=== PATIENT | male | born 1975 | race Caucasian/White ===

== ENCOUNTER 2024-10-17 11:06 | Outpatient (AMB) | payer OTHER, SELFPAY ==
--- NOTE | 2024-10-17 11:07 | A.OFFVIS_ITS ---
Vital Signs 10/17/24 11:09 Height 6 ft Weight 264 lb 5.348 oz BMI 35.8 BP 112/82 Blood Pressure Location Rt brachial Position Sitting Pulse 75 Pulse Source Pulse Oximeter Pulse Oximetry (%) 96 Oxygen Delivery Method Room Air Intake Visit Reasons: Low testosterone Intake Note: New patient externally referred for Low Tesosterone. Paper Sheeter Required: No Accompanied by: Self / Same As Patient Allergies omeprazole [From Prilosec] Allergy (Unknown, Verified 10/17/24 11:09) Rash HPI Comments Details: The patient is a 49-year-old male presenting with fatigue and concerns regarding low testosterone levels. The patient experienced fatigue for several years, starting around the time he was diagnosed with hypothyroidism two years ago. This diagnosis led to the commencement of levothyroxine treatment. Although thyroid function tests indicate improved thyroid levels, the patient reported that fatigue symptoms persist. He also notes his testosterone levels, measured previously, showed low normal values, but he has not been treated with testosterone supplements. Patient denies sexual dysfunction symptoms such as decreased libido or erectile difficulties. He experiences satisfactory sleep, albeit with occasional distu rbances but no notable history of sleep apnea. He reports no unusual changes in weight, appetite, or body composition that could be attributed to endocrine dysfunctions, nor has he noted any related familial conditions besides thyroid issues. Recently, the patient sought evaluation of an axillary lump at another medical institution, which involved an ultrasound with unclear results. 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 Surprise fatigue for couple of yrs . Found slightly low testosterone Not Was started on Testosterone supplementation Not Currently using Currently not achieving spontaneous am erections, and unable to achieve erection when desired. Not Reports low libido. Decreased facial hair and shaving frequency. Denies any change in size or shape of testicles. Denies penile discharge or scrotal tenderness. Denies any history of mumps orchitis. Denies any head trauma. Denies history of VALARIE but no workup for sleep apnea . with children 2 who were conceived spontaneously. Sense of smell intact. Denies headache or visual changes, gynecomastia or galactorrhea. Denies orthostatic symptoms, weight loss. Denies change in size of hands or feet. Denies hair loss, weight gain, cold intolerance. History of DVT or PE: No No use of biotin Labs:totl T =261 Free T=8.9 SHBG=11.2 PSA CBC The patient adheres to a generally healthy diet but expresses concerns over stagnant weight despite exercise and dietary efforts. There was no mention of specific dietary regimes or intolerances, nor was there specificity in terms of caloric intake or macronutrient composition. [facility] Medical History (Updated 10/17/24 @ 11:13 by Hao Whipple MD) Hypogonadism, testicular Surgical History (Updated 10/17/24 @ 11:10 by MARIAJOSE Arroyo) History of wisdom tooth extraction Hx of arthroscopic knee surgery Hx of shoulder surgery Family History Mother No known health problems Father No known health problems Social History Alcohol intake: current Alcohol intake frequency: holidays/special occasions only Patient Tobacco Use Status: Never used Tobacco Physical Exam Vital Signs: BMI result Body Mass Index 35.8 There is the absence of eunichoidal proportions. Neck exam reveals nl thyroid about 15 gms. Chest exam reveals absence of gynecomastia. Lungs CTA. Heart is S1 S2 Reg R/R. -M/R/G. Abdominal exam is benign. Muscle strength is 5/5 proximally. Examination of genitalia reveals nl size pthalus . Testes are of nl size and consistency. There is Jose Angel Stage V Hair development Assessment & Plan Assessment & Plan (1) Hypogonadism, testicular: Code(s): E29.1 - Testicular hypofunction Category: Medical Plan: This is a 49-year-old male found to have a low total testosterone level with normal free testosterone and low SHBG. Obesity and insulin resistance can lower SH BG and lead to low total testosterone levels. May not indicate hypogonadism 1. Fatigue: The patient's ongoing fatigue is an enduring issue post- normalization of thyroid levels with levothyroxine. Detailed monitoring and an increase of levothyroxine may be explored to target an optimal TSH range below 2.5, pending primary care provider's amendment. Further diagnostic consideration towards sleep apnea via sleep studies may be performed based on symptomatology a dherence to fatigue etiology. Reinforcement of current exercise and dietary regimen advised. 2. Hypothyroidism: TSH levels remain at the higher end of the normal range despite ongoing treatment with levothyroxine. An evaluation for dosage adjustment is recommended to achieve optimal thyroid levels. Continuous follow- up with regular thyroid function tests to ensure consistent euthyroid status and address the marginally elevated TSH. Primary care provider may consider increasing dose of levothyroxine to achieve a TSH level less than 2.5. 3. Low Testosterone Level: The assessment indicates low total but normal free testosterone levels, directing the management to focus on lifestyle amendments, including weight reduction and increased physical activity. Consideration of testosterone replacement therapy deemed not currently indicated but should be revisited should hormone profile shift or symptoms manifest typical of testosterone deficiency. The patient had an opportunity to ask questions regarding treatment plan. The patient expressed understanding and agreement with the above treatment plan. During the visit, I explained the significance of testosterone and its physiological role in addressing fatigue, contextualizing the current lab findings within the patient's symptomatology. I stressed the importance of addressing potential contributing factors from an endocrinological perspective, including optimal thyroid management and addressing potential sleep disturbances, and the role they may play in fatigue. I recommended a dose reassessment for levothyroxine and endorsed continuous exercise practices as crucial to improving overall energy levels. We discussed the potential for conducting a sleep study to rule out sleep apnea as a factor exacerbating fatigue, highlighting its necessity only if the patient's symptoms persist. Informed consent obtained for ongoing management strategies and understanding of testosterone levels' role was confirmed. The possibility of re-evaluation contingent on any future noteworthy symptoms was conveyed. - Continue taking levothyroxine on an empty stomach, preferably in the morning. - Discuss with your primary care provider the possibility of adjusting your levothyroxine dose. - Maintain your exercise regimen; consider increasing intensity or frequency as tolerated. - Be mindful of diet; seek nutritional consultation if necessary for weight management. - Schedule a follow-up visit with the primary care provider for any persistent symptoms or concerns. - Watch for any new symptoms, particularly changes in libido or energy levels, and report them. - Consider a sleep study if fatigue does not improve with above adjustments, especially if sleep disturbances increase. Patient was informed and verbally consented to the use of an ambient scribe for clinic note documentation during this visit. Coding Level of Care Code New Pt Level 4 (72993) Diagnoses Hypogonadism, testicular E29.1
[2024-10-17 11:09] VITALS: BP 112/82; PULSE 75; O2SAT 96; BMI 35.8
--- OUTSIDE RECORDS SUMMARY | 2024-10-17 13:18 | XMS_ITS | Clinical Summary ---
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 Role Phone Unavailable Primary Care Provider Unavailabl e Social History Tobacco Use Types Packs/Day Years Used Date Smoking Tobacco: Never Assessed Sex and Gender Information Value Date Recorded Sex Assigned at Not on file Gender Identity Not on file Sexual Orientation Not on file Plan of Treatment Health Maintenance Due Date Last Done Comments Hepatitis C Virus Screening 1976 HIV Screening 1989 DTaP/Tdap/Td Vaccines (1 - Tdap) 1995 Hepatitis B Vaccines (1 of 3 - 19+ 3-dose series) 1995 Colonoscopy 2021 Influenza Vaccine 02/11/2024 COVID-19 Vaccine ( - 2023-2 5 season) 2024 Pneumococcal Vaccine: Pediat junie (0-5 Years) and At-Risk Patients (6 to 49 Years) Aged Out No longer eligible b ased on patient's age to complete this topic
== END 2024-10-17 11:46 | disposition home or self-care (01) ==
LOC: HO.ENCR 11:07
PROVIDERS: PCP Internal Medicine; Visit Provider Internal Medicine Endocrinology, Diabetes & Metabolism
DX: E29.1 Testicular hypofunction (principal)
CPT/HCPCS: 99204

== ENCOUNTER → 2024-10-17 11:06 | Outpatient (BNVA) | payer OTHER, SELFPAY | PROVIDERS: PCP Internal Medicine; Visit Provider Internal Medicine Endocrinology, Diabetes & Metabolism ==